=== PATIENT | male | born 1970 | race Caucasian/White ===

== ENCOUNTER 2021-02-23 17:57 | Inpatient (IN) | payer MEDICARE, OTHER ==
[~2021-02-23] VITALS: Ht 175.3 cm; Wt 65.8 kg
[2021-02-23] MEDS ORDERED: ACETAMINOPHEN 325 MG TABLET PO PRN (20:30)
[2021-02-23] MEDS ORDERED: BLOOD SUGAR DIAGNOSTIC 1 EACH STRIP IN ONE (20:30)
[2021-02-23] MEDS ORDERED: MAG HYDROX/AL HYDROX/SIMETH 30 ML UDC PO PRN (20:30)
[2021-02-23] MEDS ORDERED: MAGNESIUM HYDROXIDE 30 ML UDC PO PRN (20:30)
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
[2021-02-24] MEDS ORDERED: DOXE50CA4 PO (02:04)
[2021-02-24] MEDS ORDERED: QUET100T PO (02:04)
[2021-02-24] MEDS ORDERED: BENZ1TAB7 PO (02:04)
[2021-02-24] MEDS ORDERED: LORA-259 PO (02:04)
--- NOTE | 2021-02-24 06:31 | NUR ---
GPS RN CLOSING NOTES: PATIENT AWAKE A/O X2. AMBULATING IN HALLWAY. SLEPT 7HR THIS SHIFT. NO C/O PAIN. NO S/S OF DISTRESS. RESPIRATION EVEN AND UNLABORED WITH EQUAL RISE AND FALL OF THE CHEST ON ROOM AIR. ALL PATIENT CARE NEEDS HAVE BEEN MET ANTICIPATED. WILL CONTINUE TO MONITOR FOR SAFETY, MOOD AND BEHAVIOR AND ENDORSE TO AM SHIFT.
[2021-02-24 08:00] VITALS: BP 141/65
[2021-02-24] MEDS: risperiDONE 0.25 MG TABLET PO SCH ×3 (11:15→17:37)
[2021-02-24] MEDS: LORAZEPAM 0.5 MG TABLET PO PRN ×2 (11:15→20:43)
[2021-02-24] MEDS ORDERED: LORAZEPAM INJ 2 MG/ML VIAL IM STA (11:24)
[2021-02-24] MEDS ORDERED: OLANZAPINE 10 MG VIAL IM STA (11:26)
--- NOTE | 2021-02-24 11:38 | NUR ---
Patient started to get agitated ,angry ,yelling and threatening to hit staff , offered Ativan po patient refused ,tried to redirect and calming him down but unsuccessful .Dr. Mac notified with new order Ativan 1mg IM ,Zyprexa 10mg IM and given at 11:38 .Patient voluntarily accept injection ,no resistant during injection.patient refused Vital signs q15 minutes for 1 hour ,No SOB ,respiration even and unlabored . Will continue to monitor for safety.
[2021-02-24 16:00] VITALS: BP 98/55
[2021-02-24 20:33] VITALS: BP 103/51
[2021-02-24] MEDS: ZOLPIDEM TARTRATE 5 MG TABLET PO PRN (21:38)
[2021-02-25 08:00] VITALS: BP 102/60
[2021-02-25] MEDS: risperiDONE 0.25 MG TABLET PO SCH ×2 (08:32→16:48)
--- NOTE | 2021-02-25 09:00 | NUR ---
RN NOTE- INTRUSIVE LABILE PSYCHOTIC INAPPROPRIATE REFUSES ALL RX EXCEPT RISPERDAL
[2021-02-25 16:00] VITALS: BP 108/64
[2021-02-25 21:00] VITALS: BP 116/71
[2021-02-26 08:00] VITALS: BP 98/52
[2021-02-26] MEDS: risperiDONE 0.25 MG TABLET PO SCH ×2 (08:19→17:03)
[2021-02-26 16:00] VITALS: BP 100/52
--- NOTE | 2021-02-26 16:25 | NUR ---
Initial Discharge Plan: Pt is currently homeless and states that he would like placement. SW will work with the pt and the MD regarding appropriate discharge planning. SW will form a safe and proper discharge.
[2021-02-26 20:57] VITALS: BP 103/59
[2021-02-27 08:00] VITALS: BP 102/51
[2021-02-27] MEDS: risperiDONE 0.25 MG TABLET PO SCH (08:22)
--- NOTE | 2021-02-27 11:53 | NUR ---
Probable Cause Hearing: Pts [id number] hold was upheld for grave disability.
[2021-02-27 16:00] VITALS: BP 100/50
[2021-02-27] MEDS: risperiDONE 1 MG TABLET PO SCH (16:14)
[2021-02-27 20:02] VITALS: BP 113/61
[2021-02-27 20:27] VITALS: BP 113/61
--- NOTE | 2021-02-27 21:54 | NUR ---
RN NOTE PATIENT HAD A SHOWER, OFFERED SLEEPING MEDICINE IF PT. IS UNABLE TO SLEEP, PT. STATED," NO SLEEPING MEDICINE WORKS FOR ME, JUST GIVE ME MILK & CRACKERS, I WILL SLEEP GOOD." SNACKS PROVIDED TO THE PATIENT. WILL CONTINUE TO MONITOR THE PT. FOR ANY CHANGES.
[2021-02-28 08:00] VITALS: BP 100/55
[2021-02-28] MEDS: risperiDONE 1 MG TABLET PO SCH ×2 (08:09→17:00)
--- NOTE | 2021-02-28 16:33 | NUR ---
GPSR/N-NOTES NOTED PATIENT VERY DISRUPTIVE IN THE DAY ROOM ,HYPERVERBAL AND ARGUMENTATIVE WITH LOUD VOICE ,REDIRECTED PATIENT TO HIS ROOM AND OFFERED ATIVAN BUT PATIENT REFUSED. PATIENT STATED" I WILL STAY IN MY ROOM AND NO ATIVAN OR MEDICATIONS". WILL CONT. MONITORING FOR SAFETY AND BEHAVIOR.
--- NOTE | 2021-02-28 17:38 | NUR ---
GPS/RN-NOTES PATIENT REFUSED RISPERDAL 1MG P.O EXPLAINED RISK AND BENEFITS BUT GETS ANGRY. PATIENT STATED" I ONLY TAKE RISPERDAL AT NIGHT, YOU CHANGE THE ORDER".OFFERED X3.
[2021-02-28 20:00] VITALS: BP 99/55
[2021-02-28 20:35] VITALS: BP 99/55
[2021-02-28 21:25] VITALS: BP 109/62
[2021-03-01 08:00] VITALS: BP_SYST 109; BP_SYST 91; BP_DIAS 58; BP_DIAS 65
[2021-03-01] MEDS: risperiDONE 1 MG TABLET PO SCH ×2 (09:00→17:03)
[2021-03-01 20:43] VITALS: BP 95/56
[2021-03-01] MEDS: ZOLPIDEM TARTRATE 5 MG TABLET PO PRN (20:59)
--- NOTE | 2021-03-01 22:17 | NUR ---
RN note: Patient refused skin reassessment.
[2021-03-02 08:00] VITALS: BP 100/61
[2021-03-02] MEDS: risperiDONE 1 MG TABLET PO SCH ×2 (08:16→16:39)
--- NOTE | 2021-03-02 08:17 | NUR ---
GPS RN NOTE: MED REFUSAL PT REFUSED RISPERIDONE 1MG PO BID. EXPLAINED RISKS AND BENEFITS X 3. OFFERED X 3. STILL REFUSED. MADE AWARE. WILL CONTINUE TO MONITOR.
[2021-03-02] MEDS ORDERED: diphenhydrAMINE HCL 50 MG/ML VIAL IM STA (09:12)
[2021-03-02] MEDS ORDERED: HALOPERIDOL LACTATE INJ 5 MG/ML VIAL IM STA (09:12)
--- NOTE | 2021-03-02 09:25 | NUR ---
GPS RN NOTE: AGITATION TODAY, AROUND 9AM, PT STARTED TO GET AGITATED NEAR NURSE'S STATION AND IN ROOM. PT STARTED TO GET ANGRY AND HOSTILE DESPITE EFFORTS TO CALM HIM DOWN. PT STARTED TO BANG ON FURNITURE DESPITE CONSTANT REDIRECTION AND PROVIDING A CALM ENVIRONMENT. OFFERED ATIVAN PRN TO CALM HIM DOWN BUT PT REFUSED. DR. CLEMENS WAS IN UNIT DURING EPISODE AND ORDERED HALDOL 5MG AND BENDARYL 50 MG IM NOW. MEDICATION WAS PULLED, AND OFFERED PT ATIVAN MULTIPLE TIMES OVER SHOT, BUT PT REMAINED COMBATIVE AND AGGRESSIVE. WITH HELP OF STAFF MEMBERS, HALDOL 5MG AND BENADRYL 50 MG GIVEN ON GLUTEUS KEN AT 0920. IMPLICATED CLOSE MONITORING OF PT. ABOUT 10-15 MINS, PT STARTED TO CALM DOWN, AND EVENTUALLY FELL ASLEEP. PT STARTED TO COMPLY WITH PLAN OF CARE AND WAS ABLE TO BE RE-DIRECTED.
--- NOTE | 2021-03-02 09:25 | NUR ---
MS RN NOTE: AGITATION PT OBSERVED SCREAMING AND YELLING AT STAFF, ACCUSING STAFF AND BEING SUSPICIOUS OF STAFF. PT REDIRECTED AND REASSURED, BUT WITH NO SUCCESS. APPROACHED IN A CALM MANNER, ASKED TO VERBALIZE FEELINGS TO NO SUCCESS. MD ORDERED HALDOL 5MG IM AND BENADRYL 50MG IM NOW. SECURITY AND COMMANDING OFFICER HOMICIDE SQUAD'S HELPED TO RESTRAIN PT. ADMINISTERED HALDOL 5MG IM AND BENADRYL 50MG IM AT 0920 IN LEFT GLUTEUS KEN MUSCLE ORDERED. WILL CONTINUE TO MONITOR FOR BEHAVIORAL CHANGES.
--- NOTE | 2021-03-03 06:09 | NUR ---
RN NOTES, PATIENT STILL SLEEPING AT THIS TIME, GETTING UP ONLY TO USE THE RESTROOM, WITH ADEQUATE HOURS OF LEEP, NO DISRUPTIVE BEHAVIOR NOTED, THROUGHOUT THE SHIFT, HAD SNACK LAST NIGHT AND CONSUME 100%, NO DISTRESS NOTED DURING THE NIGHT, WILL ENDORSE CONTINUITY OF CARE TO ONCOMING NURSE
[2021-03-03] MEDS: risperiDONE 1 MG TABLET PO SCH (10:02)
[2021-03-03] MEDS ORDERED: HALOPERIDOL LACTATE INJ 5 MG/ML VIAL IM PRN (13:00)
[2021-03-03] MEDS ORDERED: BENZTROPINE MESYLATE (2MG/2ML) 2 MG/2 ML AMPUL IM PRN (13:00)
--- NOTE | 2021-03-03 13:03 | NUR ---
GPS RN NOTE: T.O. ORDER FROM DR SARATH WATKINS RISPERDAL 1 MG PO BID, ORDER HALDOL 5 MG PO BID , COGENTIN 1 MG PO BID, PT REISED ORDER HALDOL 5 MG IM BID, COGENTIN 1 MG IM BID FOR EVERY REFUSAL PO .START NOW
[2021-03-03] MEDS: BENZTROPINE MESYLATE (1 MG) 1 MG TABLET PO SCH ×2 (13:16→17:26)
[2021-03-03] MEDS: HALOPERIDOL 5 MG TABLET PO SCH ×2 (13:16→17:26)
--- NOTE | 2021-03-03 13:30 | NUR ---
started on new meds.
[2021-03-03 16:00] VITALS: BP 97/50
--- NOTE | 2021-03-03 17:30 | NUR ---
bp rechecked and 112/73.heartrate 65.
[2021-03-03 20:45] VITALS: BP 96/39
[2021-03-03 22:15] VITALS: BP 107/63
--- NOTE | 2021-03-04 03:45 | NUR ---
RN NOTE PATIENT HAS EPISODES OF DECREASED BP, SNACKS & PO FLUIDS OFFERED & TOLERATED WELL. PATIENT IS ASLEEP COMFORTABLY AT THIS TIME. PATIENT HAS BEEN ASYMPTOMATIC & NO S/S OF HYPOTENSION NOTED AT THIS TIME. WILL CONTINUE TO MONITOR THE PATIENT FOR ANY JAZ.
--- NOTE | 2021-03-04 06:15 | NUR ---
RN NOTE PATIENT REFUSED AM LABS.
[2021-03-04 08:00] VITALS: BP 98/52
[2021-03-04] MEDS: BENZTROPINE MESYLATE (1 MG) 1 MG TABLET PO SCH ×2 (10:18→16:48)
[2021-03-04] MEDS: HALOPERIDOL 5 MG TABLET PO SCH ×3 (10:18→16:48)
[2021-03-04] MEDS ORDERED: HALOPERIDOL LACTATE INJ 5 MG/ML VIAL IM PRN (10:30)
--- NOTE | 2021-03-04 14:24 | NUR ---
afternoon haldol held as bp 99/54.heartrate 67.
[2021-03-04 16:00] VITALS: BP 102/50
[2021-03-04 20:00] VITALS: BP 115/65
[2021-03-04] MEDS: LORAZEPAM 0.5 MG TABLET PO PRN (20:06)
[2021-03-04] MEDS: ZOLPIDEM TARTRATE 5 MG TABLET PO PRN (21:15)
[2021-03-05 08:00] VITALS: BP 94/61
[2021-03-05] MEDS: BENZTROPINE MESYLATE (1 MG) 1 MG TABLET PO SCH ×3 (08:26→17:05)
[2021-03-05] MEDS: HALOPERIDOL 5 MG TABLET PO SCH ×3 (08:26→17:05)
[2021-03-05] MEDS: LORAZEPAM 0.5 MG TABLET PO PRN (12:07)
--- NOTE | 2021-03-05 12:10 | NUR ---
Individual Intervention: SW met with the pt in the hallway and explained to him that she is in the process of securing placement for him and as of right now his discharge date is tentative for Tuesday. Pt inquired what he would need to do to make sure that he gets discharged and SW stated that if he continues to show improvement with his behaviors such as exhibiting a calmer mood and being compliant with medications then the pt is showing improvement. Pt stated that he would like to be discharged as soon as possible.
[2021-03-05] MEDS ORDERED: BENZTROPINE MESYLATE (2MG/2ML) 2 MG/2 ML AMPUL IM PRN (13:00)
[2021-03-05 16:00] VITALS: BP 130/79
[2021-03-05 20:00] VITALS: BP 101/67
[2021-03-05 20:18] VITALS: BP 101/67
--- NOTE | 2021-03-06 06:58 | NUR ---
RN NOTE PATIENT SLEPT WELL AT NIGHT. LESS HYPERVERBAL AND NO BEHAVIOR EPISODES NOTED. REDIRECTABLE & COOPERATIVE THROUGH OUT THE SHIFT. WILL ENDORSE TO AM RN FOR CONTINUITY OF CARE.
[2021-03-06 08:00] VITALS: BP 107/59
--- NOTE | 2021-03-06 09:00 | NUR ---
RN NOTE- PT ALERT ORIENTED TO PERSON ONLY, CONFUSED, INTERACTIVE PT MED COMPLIANT AND GOOD PO INTAKE
[2021-03-06] MEDS: HALOPERIDOL 5 MG TABLET PO SCH ×3 (09:02→16:07)
[2021-03-06] MEDS: BENZTROPINE MESYLATE (1 MG) 1 MG TABLET PO SCH ×3 (09:02→16:07)
--- NOTE | 2021-03-06 10:03 | NUR ---
SNF Referral: HIEU faxed a SNF referral to [facility] with attn to Matthias to the fax number: [phone].
[2021-03-06] MEDS ORDERED: HALOPERIDOL DECANOATE IM 100 MG/ML AMPUL IM ONE (11:00)
[2021-03-06] MEDS: LORAZEPAM 0.5 MG TABLET PO PRN ×2 (15:43→20:08)
--- NOTE | 2021-03-06 15:43 | NUR ---
RN NOTE- PT W ANXIETY PACING RESTLESS. REQUESTED RX. ATIVAN 1 MG GIVEN
[2021-03-06 16:00] VITALS: BP 100/61
[2021-03-06 20:06] VITALS: BP 128/51
[2021-03-07] VITALS (7 sets, daily range): BP systolic 95–144; BP diastolic 52–70
--- NOTE | 2021-03-07 06:52 | NUR ---
SLEPT 8 HOURS THIS NIGHT PT PLEASENT AND COOPERATIVE TOOK ATIVAN TIMES 1 THIS 12 HOURS
[2021-03-07] MEDS: BENZTROPINE MESYLATE (1 MG) 1 MG TABLET PO SCH ×3 (09:30→17:56)
[2021-03-07] MEDS: HALOPERIDOL 5 MG TABLET PO SCH ×3 (09:30→17:56)
[2021-03-07] MEDS: LORAZEPAM 0.5 MG TABLET PO PRN ×2 (11:05→19:03)
--- NOTE | 2021-03-07 11:05 | NUR ---
GIVEN ATIVAN FOR AGITATION.
--- NOTE | 2021-03-07 16:32 | NUR ---
quiet,no complaints offered.
--- NOTE | 2021-03-07 19:04 | NUR ---
given ativan for agitation.
--- NOTE | 2021-03-07 22:10 | NUR ---
RN NOTE: PT'S SISTER CALLED PATIENT'S SISTER DANIELLAMELVINE CALLED, WANTED TO KNOW WHEN & WHERE PT. WILL BE DISCHARGED TO. INFORMATION PROVIDED & INFORMED ELISA TO SPEAK TO CHRISTINE STEM ROLLER ON TUESDAY REGARDING HER CONCERNS ABOUT PATIENT'S DISCHARGE. COOPER'S PHONE NUMBER & EXTENSION PROVIDED TO ELISA. WILL ENDORSE TO AM RN TO FOLLOW UP WELL.
[2021-03-08 08:00] VITALS: BP 93/54
[2021-03-08] MEDS: BENZTROPINE MESYLATE (1 MG) 1 MG TABLET PO SCH ×3 (08:41→17:11)
[2021-03-08] MEDS: HALOPERIDOL 5 MG TABLET PO SCH ×3 (08:41→17:11)
[2021-03-08] MEDS: LORAZEPAM 0.5 MG TABLET PO PRN ×2 (15:55→22:17)
--- NOTE | 2021-03-08 15:55 | NUR ---
PT REQUEST ATIVAN GIVEN ATIVAN 1 MG PO PRN FOR AGITATION.
[2021-03-08 16:00] VITALS: BP 103/66
[2021-03-08 20:00] VITALS: BP 94/63
[2021-03-08 20:15] VITALS: BP 94/63
--- NOTE | 2021-03-08 22:19 | NUR ---
RN NOTE: ANXIETY PT VERBALIZED THAT HE IS FEELING ANXIOUS, RESTLESS, REQUESTED TO TAKE ATIVAN. PRN ATIVAN 1 MG PO ADMINISTERED. WILL CONTINUE TO MONITOR.
--- NOTE | 2021-03-09 05:48 | NUR ---
RN NOTE COVID 19 ANTIGEN SPECIMEN COLLECTED & SENT TO LAB.
[2021-03-09 08:00] VITALS: BP 101/62
[2021-03-09] MEDS: HALOPERIDOL 5 MG TABLET PO SCH ×2 (08:41→12:06)
[2021-03-09] MEDS: BENZTROPINE MESYLATE (1 MG) 1 MG TABLET PO SCH ×2 (08:44→12:06)
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
--- NOTE | 2021-03-09 09:50 | NUR ---
Discharge Note: Pt will be discharged to [facility] ([facility]) located at [address] [place] [address]; . Pt will be transported via [facility] at 11AM. HIEU did not have anyone to contact for this pts discharge. Upon discharge, the pt appears to be in a euthymic mood and presented with a congruent affect. Pt appears to be alert and oriented x4 (time, place, self and situation). Pt denies both suicidal and homicidal ideation as well as auditory and visual hallucinations. Pt appears to be ambulatory with an unsteady gait. Pt appears to be well groomed and appropriately dressed. HIEU provided patient with the 2019 [facility] Program list. SW provided patient with a copy of the [facility] homeless directory which provides information on locations for hot meals, sack lunches, food pantries, and showers. HIEU provided an additional list of mental health clinics: [facility] [address] [place] [address] ([phone]); [facility] [address] [place] [address] ([phone]); a list of medical clinics; [facility] [address] [facility] [address], [place]. [place], ; [facility] [address] [facility], [facility] [address], [place]. HIEU Provided [facility] [address] [place] [address]: ([phone]). Patient was provided with a brief substance abuse intervention and referred to the following substance abuse programs: [facility] Substance Abuse Self-helpline ([phone]); [facility] [address] [place] [address] ([phone]); [facility] [address] [facility] [address] ([phone]); [facility] Rehabilitation Program ([phone]); [facility] ([phone]); [facility] ([phone]); [facility] ([phone]). Pt will be under the care of psychiatrist, Dr. Segovia, located at [address] [address], [place] [address]; and underwriting clerk, Dr. Hernandez, located at [address] [place] [address]; . Pts homeless waiver, choice of vendor form, and multidisciplinary exit care form were done, printed, signed, and given to the patient.
--- NOTE | 2021-03-09 11:03 | NUR ---
Patient d/c to [facility], given report Tiffanie CERDA who was asking skin issue but patient refused skin assess, patient independent ambulatory. But Tiffanie called Nan/ball worker of [facility] complaining that patient had not been skin assess during stay facility. Given report all Tiffanie Spring wants know informations, who said "I know Sam" at the end of our conversation.
[2021-03-09] MEDS: LORAZEPAM 0.5 MG TABLET PO PRN (12:07)
--- NOTE | 2021-03-09 12:52 | NUR ---
2EMTs picked up patient and given report. Patient in stable condition, no SI/HI observed.
== END 2021-03-09 13:00 | DRG 885 ==
LOC: GPS 19:36
PROVIDERS: ADMIT Psychiatry & Neurology Psychiatry; ATTEND Internal Medicine
DX: F20.0 Paranoid schizophrenia (principal); F41.9 Anxiety disorder, unspecified; Z73.6 Limitation of activities due to disability; F17.200 Nicotine dependence, unspecified, uncomplicated; Z59.0 Homelessness; Z91.19 Patient's noncompliance with other medical treatment and regimen
CPT/HCPCS: 82962-TC; 87081-TC; J1200; J1630; J1631; J2060; J3490